=== PATIENT | male | born 2005 | race African-American/Black ===

== ENCOUNTER 2025-04-25 10:02 | Emergency (ER) | payer MEDICAID ==
[~2025-04-25] VITALS: Ht 175.3 cm; Wt 70.9 kg
[2025-04-25 10:04] VITALS: TEMP 98.5; O2SAT 100
--- NOTE | 2025-04-25 10:35 | Physician Documentation ---
History of Present Illness ~ Chief Complaint: Flu Symptoms Stated Complaint: POSS SYNCOPE Time Seen by MD: 10:27 OK to notify your PCP?: Yes Primary Medical Doctor: BENOIT Source: patient Mode of Arrival: POV Exam Limitations: no limitations HPI 27-year-old male with chief complaint feeling lightheaded when he was at work this morning. 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 He and states he has had sinus congestion for about three days and a dry cough. He has not had any nausea, vomiting, shortness of breath or chest pain. No history of syncopal episodes or near syncopal episodes in the past. Medication Reconciliation Allergies: Coded Allergies: No Known Allergies (Unverified , 04/25/25) Past Medical History Past Medical History: No Pertinent History Past Surgical History: no surgical history Alcohol Use: None Drug Use: none Lives with: Family Lives In: Assisted Care Occupation: child Review of Systems All Other Systems at this time: Reviewed and Negative Physical Exam Vital Signs: Temperature: 98.5, Source: Temporal, Heart Rate: 95, Respiratory Rate: 18, BP: 112/57, Pulse Oximetry: 100, Weight: 70.910 Oxygen Flow Rate: 0 Physical Exam GENERAL: Alert, no acute distress. Patient sounds congested in his sinuses, but otherwise normal exam. HEENT: NCAT, EOMI, PERRL, normal oropharynx, posterior pharyngeal wall normal, moist oral mucosa. NECK: Supple, trachea midline. No cervical lad. CARDIAC: Regular rate and rhythm, no murmurs, rubs, or gallops. Equal distal pulses. No lower extremity edema, cap refill less than 2 seconds. RESPIRATORY: Equal breath sounds, clear to auscultation bilaterally, no respiratory distress. MUSCULOSKELETAL: Normal range of motion, nontender, no swelling. Normal gait. NEUROLOGICAL: Awake, alert, and oriented x 3. SKIN: Warm/dry, no pallor, no rash. PSYCH: Alert and appropriate. Affect congruent with mood. Speech is clear. Good eye contact. Progress Results/Orders Results/Orders Orders - EILEEN ENNIS Orthostatic Vs (04/25/25 ) Vital Signs 04/25/25 04/25/25 04/25/25 10:04 10:44 10:46 Temp 98.5 Pulse 95 79 82 90 Resp 18 18 B/P (MAP) 112/57 122/63 119/73 129/62 Pulse Ox 100 O2 Flow Rate 0 Medical Decision Making Differential Dx:Considerations: Include: anemia, CVA, dehydration, dysrhythmia, electrolyte imbalance, encephalopathy, Guillain-Watson, hypoglycemia, hypotension, hypovolemia, labyrinthitis, Meniere's disease, myasathenia gravis, myocardial infarction, pulmonary embolus, renal failure, respiratory failure, TIA, VBI, vertigo central, vertigo peripheral, vestibular neuronitis, other Additional Information WE DID NOT DO LAB WORK SINCE YOUR ORTHOSTATIC VITAL SIGNS WHERE NORMAL AND YOU DID NOT HAVE ANY OTHER CONCERNING SYMPTOMS TO INDICATE TRUE DEHYDRATION OR V OLUME DEPLETION. Departure Time of Disposition: 10:49 Disposition: 01 HOME / SELF CARE / HOMELESS Impression: Primary Impression: Sinusitis, acute Qualified Codes: J01.90 - Acute sinusitis, unspecified Additional Impression: Positional lightheadedness Condition: Stable Discharge Instructions: Viral Illness Additional Instructions: I AM GIVING YOU A WORK NOTE TO STAY HOME AND REST FOR THE NEXT FEW DAYS. 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 I THINK YOUR POSITIONAL LIGHTHEADEDNESS THAT OCCURRED EARLIER TODAY WHEN YOU WHERE AT WORK WAS CIRCUMSTANTIAL DUE TO HAVING A COLD ALONG WITH WORKING OUTSIDE IN [employer]AT. Departure Forms: Excuse form Work or School Excused From: Work Excuse beginning now through the following date: Apr 27, 2025 May Return but still avoid physical Activity from now until: Apr 28, 2025 Referrals: NO PRIMARY CARE PROVIDER (PCP) Education Educated: Patient Educated regarding: diagnosis, treatment, need for follow up Signature Scribe Signature: x Attestation: EILEEN Arenas Apr 25, 2025 10:35
[2025-04-25 10:44] VITALS: BP 129/62; PULSE 90
[2025-04-25 10:46] VITALS: RESP 18
== END 2025-04-25 11:00 | disposition home or self-care (01) ==
LOC: ER 10:03
DX: J01.90 Acute sinusitis, unspecified (principal); R51.9 Headache, unspecified
CPT/HCPCS: 99281; 99282